=== PATIENT | female | born 1975 | race Caucasian/White ===

== ENCOUNTER 2017-05-29 23:03 | Emergency (ER) | payer SELFPAY ==
[~2017-05-29] VITALS: Ht 170.2 cm; Wt 97.6 kg
[2017-05-29 23:09] VITALS: BP 135/72
--- NOTE | 2017-05-29 23:14 | NUR ---
[place] [facility] REPORT FILED #[id number], OFFICIAL Marylu TORRES [id number].
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
--- NOTE | 2017-05-29 23:20 | NUR ---
PT AMBULATED TO BED10
[2017-05-29] MEDS ORDERED: ACETAMINOPHEN/CODEINE 300/30MG 1 TAB PO ONE (23:30)
--- NOTE | 2017-05-29 23:41 | NUR ---
PT TAKEN TO CT
--- NOTE | 2017-05-29 23:56 | NUR ---
PT RETURN FROM CT
--- NOTE | 2017-05-30 00:26 | NUR ---
Patient appears to be resting comfortably in bed. Vital Signs within normal limits. Respirations even and unlabored.
--- NOTE | 2017-05-30 00:53 | NUR ---
Patient discharged with v/s stable. Written and verbal after care instructions given and explained. Patient alert, oriented and verbalized understanding of instructions. Ambulatory with steady gait. All questions addressed prior to discharge. ID band removed. Patient advised to follow up with PMD. Rx of FLEXERIL AND IBUPROFEN given. Patient educated on indication of medication including possible reaction and side effects. Opportunity to ask questions provided and answered.
[2017-05-30 00:57] VITALS: BP 128/72
== END 2017-05-30 00:53 | disposition home or self-care (01) ==
LOC: MED 23:03
DX: S02.2XXA Fracture of nasal bones, initial encounter for closed fracture (principal); R51 Headache; R22.0 Localized swelling, mass and lump, head; Z88.0 Allergy status to penicillin; Y04.8XXA Assault by other bodily force, initial encounter; Y93.89 Activity, other specified; Y92.89 Other specified places as the place of occurrence of the external cause; Y99.8 Other external cause status
CPT/HCPCS: 70486; 81025; 99284